=== PATIENT | male | born 1990 | race Caucasian/White ===

== ENCOUNTER 2021-05-15 18:18 | Emergency (ER) | payer OTHER ==
[~2021-05-15] VITALS: Ht 167.6 cm; Wt 145.4 kg
[2021-05-15] MEDS ORDERED: IBUPROFEN 800 MG TABLET PO ONE (22:30)
[2021-05-15] MEDS ORDERED: LIDOCAINE 2% 5 ML JELLY TP ONE (22:30)
[2021-05-16 01:43] VITALS: BP 145/87
== END 2021-05-16 02:00 | disposition home or self-care (01) ==
LOC: EMS 18:24
DX: S80.12XA Contusion of left lower leg, initial encounter (principal); M25.511 Pain in right shoulder; Z91.013 Allergy to seafood; W19.XXXA Unspecified fall, initial encounter; Y93.89 Activity, other specified; Y92.89 Other specified places as the place of occurrence of the external cause; Y99.8 Other external cause status
CPT/HCPCS: 99284; 73030-TC; 73590-TC; Z7502; Z7610